=== PATIENT | female | born 1995 | race Asian ===

== ENCOUNTER 2019-09-11 13:19 | Inpatient (IN) | payer OTHER ==
[2019-09-11 13:59] LABS: Urine Appearance Clear; Urine Bilirubin Negative (Negative); Urine Blood Negative (Negative); Urine Color Straw; Urine Glucose Negative (Negative); Urine Ketones Negative (Negative); Urine Nitrite Negative (Negative); Urine Protein Negative (Negative); Urine Specific Gravity 1.011 (1.010-1.030); Urine Urobilinogen Negative (Negative)
[2019-09-11 14:20] LABS: ABS Lymphocytes 1.5 10^3/ul (1.0-4.8); ABS Monocytes 0.2 10^3/ul (0-0.8); ABS Neutrophils 1.7 10^3/ul (1.5-7.7); Eosinophil % 1.3 %; Hematocrit 38 % (35-47); Hemoglobin 12.5 g/dL (12.0-16.0); Lymphocyte % 43.5 %; Mean Corpuscular HGB Conc 33 g/dL (31-36); Mean Corpuscular Hemoglobin 31 pg (27-31); Mean Corpuscular Volume 94 fL (80-97); Nucleated Red Blood Cells % 0.1; Platelet Count 184 10^3/uL (150-450); Red Blood Count 4.09 10^6 /uL (3.70-4.87); Red Cell Distribution Width 13 % (10-15); White Blood Count 3.5 10^3/uL (3.5-10.8)
[2019-09-11 14:22] LABS: Urine Benzodiazepine Screen None Detected (None Detect); Urine Opiates Screen None Detected (None Detect)
[2019-09-11 14:36] LABS: Albumin 4.4 g/dL (3.2-5.2); Anion Gap 5 mmol/L (2-11); CO2 Carbon Dioxide 24 mmol/L (22-32); Calcium 9.7 mg/dL (8.6-10.3); Chloride 107 mmol/L (101-111); Potassium 3.8 mmol/L (3.5-5.0); Sodium 136 mmol/L (135-145)
[2019-09-11 14:42] LABS: ALT 15 U/L (7-52); AST 17 U/L (13-39); Acetaminophen < 15 mcg/mL; Albumin/Globulin Ratio 1.4 (1-3); Alcohol < 10 mg/dL (<10); Alkaline Phosphatase 68 U/L (34-104); BUN/Creatinine Ratio 24.5 (8-20); Blood Urea Nitrogen 12 mg/dL (6-24); EGFR African American 187.7 (>60); EGFR Non-African American 155.2 (>60); Globulin 3.1 g/dL (2-4); Glucose 82 mg/dL (70-100); Salicylate < 2.50 mg/dL (<30); Total Protein 7.5 g/dL (6.4-8.9)
--- NOTE | 2019-09-11 14:51 | ED ---
Psychiatric Complaint - HPI Summary HPI Summary: This patient is a 24-year-old female presenting to the ED with ongoing suicidal ideation since beginning of July. Patient denies any suicidal thoughts at this time, however was seen at [facility] for a refill on medication of her trazodone and Lexapro. She has been off of these medications 3 months. She states while at [facility] today she has been having feelings of suicide as well as stating she would take a handful of pills or run out into traffic. She arrives by 941. She states her worsening thoughts were back in July of suicide, however continues to have these, although mild. She denies any SI/HI at this time. Denies any self-harm. - History Of Current Complaint Chief Complaint: EDSuicidal Time Seen by Provider: 09/11/19 13:29 Hx Obtained From: Patient ?: No Onset/Duration: Sudden Onset Timing: Constant Severity Initially: Moderate Severity Currently: Moderate Character: Depressed Aggravating Factor(s): Nothing Alleviating Factor(s): Nothing Has Suicidal: Reports: Thoughts - Risk Factor(s) Completed Suicide Risk Factors: Negative - Allergies/Home Medications Allergies/Adverse Reactions: Allergies Allergy/AdvReac Type Severity Reaction Status Date / Time Penicillins Allergy Unknown Verified 09/11/19 13:31 Reaction Details Home Medications: Home Medications Bupropion XL* [Wellbutrin XL *] 150 mg PO DAILY 09/11/19 [History Confirmed ] Escitalopram * [Lexapro 10 mg (NF)] 10 mg PO DAILY 09/11/19 [History Confirmed 09/11/19] traZODone TAB* [Desyrel TAB*] 50 mg PO BEDTIME 09/11/19 [History Confirmed 09/11] PMH/Surg Hx/FS Hx/Imm Hx Previously Healthy: Yes - Immunization History Hx Pertussis Vaccination: No Immunizations Up to Date: Yes Infectious Disease History: No Infectious Disease History: Denies: Traveled Outside the [place] in Last 30 Days - Social History Occupation: Unemployed, Student Lives: Dormitory/Roommates Alcohol Use: None Hx Substance Use: No Substance Use Type: Reports: None Hx Tobacco Use: No Smoking Status (MU): Never Smoked Tobacco Review of Systems Negative: Fever, Chills, Fatigue, Skin Diaphoresis Negative: Palpitations, Chest Pain Negative: Shortness Of Breath, Cough Negative: Rash, Bruising Negative: Headache, Weakness Positive: Anxious, Depressed All Other Systems Reviewed And Are Negative: Yes Physical Exam Triage Information Reviewed: Yes Vital Signs On Initial Exam: Initial Vitals Temp Pulse Resp BP Pulse Ox 99 F 70 18 99/64 96 09/11/19 13:23 09/11/19 13:23 09/11/19 13:23 09/11/19 13:23 09/11/19 13:23 Vital Signs Reviewed: Yes Appearance: Positive: Well-Appearing, Well-Nourished Skin: Positive: Warm, Skin Color Reflects Adequate Perfusion Head/Face: Positive: Normal Head/Face Inspection Eyes: Positive: EOMI, KERLINE, Conjunctiva Clear Neck: Positive: Supple, No Lymphadenopathy Respiratory/Lung Sounds: Positive: Clear to Auscultation, Breath Sounds Present Cardiovascular: Positive: RRR, Pulses are Symmetrical in both Upper and Lower Extremities Musculoskeletal: Positive: Normal, Strength/ROM Intact Neurological: Positive: Speech Normal Psychiatric: Positive: Affect/Mood Appropriate - Noted Procedures - Sedation Patient Received Moderate/Deep Sedation with Procedure: No Diagnostics - Vital Signs Vital Signs Temp Pulse Resp BP Pulse Ox 09/11/19 13:23 99 F 70 18 99/64 96 - Laboratory Lab Results: Lab Results 09/11/19 09/11/19 09/11/19 Range/Units 13:45 13:45 14:07 WBC 3.5 (3.5-10.8) 10^3/uL RBC 4.09 (3.70-4.87) 10^6 /uL Hgb 12.5 (12.0-16.0) g/dL Hct 38 (35-47) % MCV 94 (80-97) fL MCH 31 (27-31) pg MCHC 33 (31-36) g/dL RDW 13 (10-15) % Plt Count 184 (150-450) 10^3/uL MPV 8.0 (7.4-10.4) fL Neut % (Auto) 48.7 % Lymph % (Auto) 43.5 % Yell % (Auto) 5.6 % Eos % (Auto) 1.3 % Baso % (Auto) 0.9 % Absolute Neuts (auto) 1.7 (1.5-7.7) 10^3/ul Absolute Lymphs (auto) 1.5 (1.0-4.8) 10^3/ul Absolute Monos (auto) 0.2 (0-0.8) 10^3/ul Absolute Eos (auto) 0.0 (0-0.6) 10^3/ul Absolute Basos (auto) 0.0 (0-0.2) 10^3/ul Absolute Nucleated RBC 0.0 10^3/ul Nucleated RBC % 0.1 Sodium (135-145) mmol/L Potassium (3.5-5.0) mmol/L Chloride (101-111) mmol/L Carbon Dioxide (22-32) mmol/L Anion Gap (2-11) mmol/L BUN (6-24) mg/dL Creatinine (0.51-0.95) mg/dL Est GFR ( Amer) (>60) Est GFR (Non-Af Amer) (>60) BUN/Creatinine Ratio (8-20) Glucose (70-100) mg/dL Calcium (8.6-10.3) mg/dL Total Bilirubin (0.2-1.0) mg/dL AST (13-39) U/L ALT (7-52) U/L Alkaline Phosphatase (34-104) U/L Total Protein (6.4-8.9) g/dL Albumin (3.2-5.2) g/dL Globulin (2-4) g/dL Albumin/Globulin Ratio (1-3) TSH Urine Color Straw Urine Appearance Clear Urine pH 6.0 (5-9) Ur Specific Waterman 1.011 (1.010-1.030) Urine Protein Negative (Negative) Urine Ketones Negative (Negative) Urine Blood Negative (Negative) Urine Nitrate Negative (Negative) Urine Bilirubin Negative (Negative) Urine Urobilinogen Negative (Negative) Ur Leukocyte Esterase Negative (Negative) Urine Glucose Negative (Negative) Salicylates (<30) mg/dL Urine Opiates Screen None detected (None Detect) Acetaminophen mcg/mL Ur Barbiturates Screen None detected (None Detect) Ur Phencyclidine Scrn None detected (None Detect) Ur Amphetamines Screen None detected (None Detect) U Benzodiazepines Scrn None detected (None Detect) Urine Cocaine Screen None detected (None Detect) U Cannabinoids Screen None detected (None Detect) Serum Alcohol (<10) mg/dL 09/11/19 Range/Units 14:07 WBC (3.5-10.8) 10^3/uL RBC (3.70-4.87) 10^6 /uL Hgb (12.0-16.0) g/dL Hct (35-47) % MCV (80-97) fL MCH (27-31) pg MCHC (31-36) g/dL RDW (10-15) % Plt Count (150-450) 10^3/uL MPV (7.4-10.4) fL Neut % (Auto) % Lymph % (Auto) % Yell % (Auto) % Eos % (Auto) % Baso % (Auto) % Absolute Neuts (auto) (1.5-7.7) 10^3/ul Absolute Lymphs (auto) (1.0-4.8) 10^3/ul Absolute Monos (auto) (0-0.8) 10^3/ul Absolute Eos (auto) (0-0.6) 10^3/ul Absolute Basos (auto) (0-0.2) 10^3/ul Absolute Nucleated RBC 10^3/ul Nucleated RBC % Sodium 136 (135-145) mmol/L Potassium 3.8 (3.5-5.0) mmol/L Chloride 107 (101-111) mmol/L Carbon Dioxide 24 (22-32) mmol/L Anion Gap 5 (2-11) mmol/L BUN 12 (6-24) mg/dL Creatinine 0.49 L (0.51-0.95) mg/dL Est GFR ( Amer) 187.7 (>60) Est GFR (Non-Af Amer) 155.2 (>60) BUN/Creatinine Ratio 24.5 H (8-20) Glucose 82 (70-100) mg/dL Calcium 9.7 (8.6-10.3) mg/dL Total Bilirubin 0.40 (0.2-1.0) mg/dL AST 17 (13-39) U/L ALT 15 (7-52) U/L Alkaline Phosphatase 68 (34-104) U/L Total Protein 7.5 (6.4-8.9) g/dL Albumin 4.4 (3.2-5.2) g/dL Globulin 3.1 (2-4) g/dL Albumin/Globulin Ratio 1.4 (1-3) TSH Pending Urine Color Urine Appearance Urine pH (5-9) Ur Specific Waterman (1.010-1.030) Urine Protein (Negative) Urine Ketones (Negative) Urine Blood (Negative) Urine Nitrate (Negative) Urine Bilirubin (Negative) Urine Urobilinogen (Negative) Ur Leukocyte Esterase (Negative) Urine Glucose (Negative) Salicylates < 2.50 (<30) mg/dL Urine Opiates Screen (None Detect) Acetaminophen < 15 mcg/mL Ur Barbiturates Screen (None Detect) Ur Phencyclidine Scrn (None Detect) Ur Amphetamines Screen (None Detect) U Benzodiazepines Scrn (None Detect) Urine Cocaine Screen (None Detect) U Cannabinoids Screen (None Detect) Serum Alcohol < 10 (<10) mg/dL Result Diagrams: 09/11/19 14:07 09/11/19 14:07 Lab Statement: Any lab studies that have been ordered have been reviewed, and results considered in the medical decision making process. Course/Dx - Course Course Of Treatment: Patient is evaluated for suicidal ideation since July. Patient states she denies is currently, however has intermittent thoughts of suicide. She denies any drug or alcohol use. Labs obtained and are unremarkable including an alcohol level. She is cleared for mental health evaluation. Following [facility], per Dr. Mayorga, pt will be admitted volunary for major depressive disorder. - Differential Dx/Clinical Impression Differential Diagnosis/HQI/PQRI: Positive: Suicide Attempt, Suicidal Ideation, Suicidal Gesture Provider Diagnosis: Suicidal ideation Discharge ED - Sign-Out/Discharge Documenting (check all that apply): Patient Departure All imaging exams completed and their final reports reviewed: No - Discharge Plan Condition: Fair Disposition: ADMITTED TO [facility] - Billing Disposition and Condition Condition: FAIR Disposition: Admitted to [facility]
[2019-09-11 16:34] LABS: TSH (Thyroid Stimulating Horm) 0.78 mcIU/mL (0.34-5.60)
[2019-09-11] MEDS ORDERED: Acetaminophen TAB* 325 MG PO PRN (21:46)
[2019-09-11] MEDS ORDERED: Al Hydrox/Mg Hydrox/Simet LIQ* 30 ML UDC PO PRN (21:47)
[2019-09-11] MEDS ORDERED: traZODone TAB* 50 MG TAB PO ONE (22:00)
[2019-09-12 07:06] LABS: HDL Cholesterol 73.4 mg/dL
--- NOTE | 2019-09-12 08:59 | HP ---
H&P (Free Text) History and Physical: Justification for admission: Immediate Safety. CC " I want to go home" The patient was brought to [facility] by [facility] after expressing that she had suicidal ideation with a plan to walk into traffic. Denied access to firearms or stockpiles of medications. She reported running out of medications a month ago and has felt anxious and depressed. The patient reported having low energy and decreased concentration. The patient reported that her friends that she lives with are too busy to live to visit her and that the hospital is not a good place for her. She identifies her stressors as feeling alone in [place]. Denied changes in sleep and diminished appetite with 20lbs weight loss. The patient denied homicidal ideation intent or plan.The patient denied auditory and/ or visual hallucinations. MDD Reported feeling depressed with increased crying spells. The last 2 weeks she has had feelings of hopelessness , and worthlessness. 20 lbs unintentional weight loss. Denied interruption of sleep Reported loss of energy , decreased concentration. Anxiety Denied having symptoms of anxiety such as having times where heart feels that it is beating out of chest , sweaty palms, or shallow breathing. Denied having uncomfortable or intrusive thoughts. Denied feeling restless, high strung, or worrying too much most of the time. Bipolar Denied symptoms of brandin such as having many ideas at once. Denied increased talkativeness where no one can interrupt. Denied feeling irritable most of the time while having an persistent abundance of energy most of the day without the use of energy drinks, stimulants, or recreational drug use. Denied an increase in intensity in goal directed activities. Denied having the decreased need to sleep for days , having prolonged elevated mood , or feeling on top of the world. Denied impulsive risky sexual encounters. Denied spending money recklessly , going on spending sprees wiping out savings. Denied impulsively traveling out of town or country, having super rooney, and unrealistic wealth or fame. Psychosis Does not endorse hearing things that other people do not hear or seeing things other people do not see. Denied feeling that TV is making references. Denied feeling that people are spying , following , or reading their thoughts. Phobias: Patient denied having excessive fear of a particular thing or situation. Eating disorders: Patient denied having excessive eating habits or feelings of guilt after eating. Denied repeated episodes of self induced vomiting after eating. PTSD Denied flashbacks, nightmares and avoidance of a prior traumatic event. PAST PSYCHIATRIC HISTORY: Prior Diagnosis : Major depressive disorder. History of past Psychiatric Hospitalizations: 1 prior psychiatric admission at [facility] in [place] in January 2019 for 3 days for walking into traffic. History of past suicide/homicide attempts : 1 past suicide attempt by walking into traffic, denied repeated self injurious behaviors. No history of violence. Outpatient follow-up: [facility] Medications: Past trials of medications include lexapro 10mg po daily , wellbutrin 150mg daily, trazodone 50mg qhs. She reported positive response with the current combinations of medications Guardianship: None. FAMILY HISTORY: - Suicide: Denied family history of suicide. - Mental illness: Denied a history of mental health in immediate family members. - Substance abuse: Denied substance abuse among family members. SUBSTANCE ABUSE HISTORY: Denied using alcohol, tobacco, heroin cocaine or other illicit substances. Denied abusing pills for recreational use. Denied past Substance abuse treatment. SOCIAL HISTORY: - Denied a history of childhood physical and or sexual abuse Born in [facility] and raised by her Grandparents until middle school and was then raised by her mother. Her parents are and she has not spoken with her father in 5 years. She was living in [place] for 4 years attending [employer]. 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 No history of special education. - Living situation: Currently lives with roommate in a apartment in [facility] [facility] [place] - Employment history: none - Relationship: Single and has no children. - Legal history: Denied - service history: Denied PAST MEDICAL HISTORY: Denied heart disease, diabetes, cancer and/ or other medical conditions. - Allergies: Penicillin Physical Exam: Please see ED note Mental Status Exam on Admission APPEARANCE : 24 year old female who appears stated age. Patient is not malodourous, and appears to have fair hygiene and grooming. BEHAVIOR: Cooperative , calm EYE CONTACT: Fair PSYCHOMOTOR ACTIVITY: No psychomotor agitation or retardation. MOVEMENTS: No abnormal movements observed. SPEECH : Normal rate, rhythm, volume and tone. MOOD : " Angry" AFFECT : Type is depressed Range is restricted Mood Congruent THOUGHT PROCESS: Formulated and organized in a logical, linear goal directed manner. No flight of ideas, neologism (made up words) , perseveration , tangential , loose associations , or circumstantiality. THOUGHT CONTENT: preoccupation about discharge PERCEPTION: No current auditory or visual hallucinations. Doesnt appear to be responding to internal cues. No evidence of depersonalization , de-realization, or illusions SUICIDALITY + suicidal ideation HOMICIDALITY Denied homicidal ideation, intent or plan. Insight/judgment: Poor insight and judgment ORIENTATION: Oriented to self, location, and time. Diagnosis on Admission: Major depressive disorder, severe. Assessment: 24 year old female with history of depression and recent suicidal ideation came to the hospital and was admitted to the [facility] at [facility]. Plan #Admit to BSU, Q15 minute observation. Start regular diet. Encourage participation in activities on the milieu. #Patient evaluated in ED and was determined by the emergency room Physician to be medically fit for admission to the BSU. # Justification for Admission: For immediate safety per outlined in the [place] Mental Hygiene Code. # The patient requires psychiatric inpatient admission at this time to assure safety, receive treatment and work toward stabilization. # Labs ordered: CBC, CMP, UDS, TSH, HBA1c, TSH, Toxicology screen, Urine analysis, and lipid profile. # B-HCG was ordered and results are negative. # Obtain collateral information once release is signed. # Collaboration with Social Work # Resume home medications wellbutrin 150mg po daily for fatigue and concentration , lexapro 10mg po daily for depression, trazodone 50mg po qhs for sleep. Denied seizure disorder or eating disorder. #Goals before discharge include: To eliminate/ reduce suicidal ideation Tentative Discharge: Pending psychiatric stabilization The risks, benefits, and alternative treatment options were discussed as well as the risks of refusing treatment. After this discussion and an acknowledgement of this understanding was made. A risk/ benefit assessment of treatment was considered and discussed with the patient. When comparing the risks of treatment with the dangers of not receiving treatment, the benefits of treatment outweigh the treatment risks at this time. Risks of allergy, suicidal ideation, behavioral changes, dystonia, rashes, electrolyte imbalances, movement disorders, cardiac conduction changes, serotonin syndrome, metabolic risks were among some of the risks discussed. Sodium 136 mmol/L (135-145) 09/11/19 14:07 Potassium 3.8 mmol/L (3.5-5.0) 09/11/19 14:07 BUN 12 mg/dL (6-24) 09/11/19 14:07 Creatinine 0.49 mg/dL (0.51-0.95) L 09/11/19 14:07 Hemoglobin A1c 5.4 % (4.0-5.6) 09/12/19 06:29 Calcium 9.7 mg/dL (8.6-10.3) 09/11/19 14:07 AST 17 U/L (13-39) 09/11/19 14:07 ALT 15 U/L (7-52) 09/11/19 14:07 Triglycerides 59 mg/dL 09/12/19 06:29 Cholesterol 214 mg/dL 09/12/19 06:29 LDL Cholesterol 129 mg/dL 09/12/19 06:29
[2019-09-12] MEDS: Multivitamins/Minerals TAB PO SCH (10:08)
[2019-09-12] MEDS: Escitalopram * 10 MG TAB PO SCH (10:12)
[2019-09-12 11:14] LABS: HCG Pregnancy 0.77 mIU/mL
[2019-09-12] MEDS: BuPROPion XL* 150 MG TAB.XL PO SCH (14:49)
[2019-09-12] MEDS: traZODone TAB* 50 MG TAB PO SCH (22:11)
[2019-09-13] MEDS: BuPROPion XL* 150 MG TAB.XL PO SCH (09:57)
[2019-09-13] MEDS: Escitalopram * 10 MG TAB PO SCH (09:57)
[2019-09-13] MEDS: Multivitamins/Minerals TAB PO SCH (09:57)
[2019-09-13] MEDS: traZODone TAB* 50 MG TAB PO SCH (22:56)
[2019-09-14] MEDS: BuPROPion XL* 150 MG TAB.XL PO SCH (09:48)
[2019-09-14] MEDS: Multivitamins/Minerals TAB PO SCH (09:48)
[2019-09-14] MEDS: Escitalopram * 10 MG TAB PO SCH (11:10)
--- NOTE | 2019-09-14 12:51 | PN ---
Subjective - Subjective Date of Service: 09/14/19 Service Type: 79337 Hosp care 25 min moderate complexity Subjective: John was busy doing couple of puzzles at the same time and appeared happy and smiling. Denied any problems with mood, thoughts or perceptions. Also denied SI or HI. Objective - General Observations Appearance: Well Groomed Stature: Thin Posture: WNL Eye Contact: Average Behavior/Activity: Accelerated - Interaction Observations Attitude Towards Examiner: Cooperative Stated Mood: Euthymic Affect: Bright Speech Pattern/Tone: Clear, Appropriate, Normal Volume Thought Content: WNL Hallucination Type: None Delusion Type: None - Cognitive Function Orientation: A&O x 4 Level of Consciousness: Awake, Alert, Appropriate Cognition: WNL Estimated Intelligence: Normal Insight: WNL Judgment Within Normal Limits: Yes - Medication Compliance Cooperative with Inpatient Medication Regimen: Yes - Group Participation Participates in Group Activities: Partial Assessment - Assessment Merits Inpatient Hospitalization: Consolidate Improvements, For Discharge Planning Plan - Plan Treatment Plan: Name: KANDIS LEES Birthdate: 1995 [id number] Continued Medication Management: Continue Outpt Medication Medications: Current Medications Acetaminophen (Tylenol Tab*) 650 mg PO Q4H PRN PRN Reason: PAIN; OR TEMP >101 Al Hydrox/Mg Hydrox/Simethicone (Maalox Plus*) 30 ml PO Q4H PRN PRN Reason: INDIGESTION Bupropion HCl (Wellbutrin Xl *) 150 mg PO DAILY [facility] Last Admin: 09/14/19 09:48 Dose: 150 mg Escitalopram Oxalate (Lexapro *) 10 mg PO DAILY [facility] Last Admin: 09/14/19 11:10 Dose: 10 mg Multivitamins/Minerals (Theragran/Minerals Tab*) 1 tab PO DAILY [facility] Last Admin: 09/14/19 09:48 Dose: 1 tab Trazodone HCl (Desyrel Tab*) 50 mg PO BEDTIME [facility] Last Admin: 09/13/19 22:56 Dose: Not Given - Discharge Plan Discharge Plan: Outpatient Follow Up Outpatient Program: Counseling[facility] Services at [place]
[2019-09-14] MEDS: traZODone TAB* 50 MG TAB PO SCH (22:28)
[2019-09-15 10:02] VITALS: BP 102/60
--- NOTE | 2019-09-15 10:20 | DS ---
Subjective - Subjective Service Types: 97[address] [facility] Day Mgmt complex over 30 min Discharge Date: 09/15/19 Subjective: CC: " Fine" Patient looks forward to going back to school and seeing her friends. The patient was seen and evaluated before discharge today. The patient reported having adequate appetite and sleep. The patient reported attending and participating in day groups. Per nursing no behavioral issues or overnight events reported. Patient reported tolerating medications without side effects. Justification for admission: Immediate Safety. CC " I want to go home" The patient was brought to [facility] by [facility] after expressing that she had suicidal ideation with a plan to walk into traffic. Denied access to firearms or stockpiles of medications. She reported running out of medications a month ago and has felt anxious and depressed. The patient reported having low energy and decreased concentration. The patient reported that her friends that she lives with are too busy to live to visit her and that the hospital is not a good place for her. She identifies her stressors as feeling alone in [place]. Denied changes in sleep and diminished appetite with 20lbs weight loss. The patient denied homicidal ideation intent or plan.The patient denied auditory and/ or visual hallucinations. MDD Reported feeling depressed with increased crying spells. The last 2 weeks she has had feelings of hopelessness , and worthlessness. 20 lbs unintentional weight loss. Denied interruption of sleep Reported loss of energy , decreased concentration. Anxiety Denied having symptoms of anxiety such as having times where heart feels that it is beating out of chest , sweaty palms, or shallow breathing. Denied having uncomfortable or intrusive thoughts. Denied feeling restless, high strung, or worrying too much most of the time. Bipolar Denied symptoms of brandin such as having many ideas at once. Denied increased talkativeness where no one can interrupt. Denied feeling irritable most of the time while having an persistent abundance of energy most of the day without the use of energy drinks, stimulants, or recreational drug use. Denied an increase in intensity in goal directed activities. Denied having the decreased need to sleep for days , having prolonged elevated mood , or feeling on top of the world. Denied impulsive risky sexual encounters. Denied spending money recklessly , going on spending sprees wiping out savings. Denied impulsively traveling out of town or country, having super rooney, and unrealistic wealth or fame. Psychosis Does not endorse hearing things that other people do not hear or seeing things other people do not see. Denied feeling that TV is making references. Denied feeling that people are spying , following , or reading their thoughts. Phobias: Patient denied having excessive fear of a particular thing or situation. Eating disorders: Patient denied having excessive eating habits or feelings of guilt after eating. Denied repeated episodes of self induced vomiting after eating. PTSD Denied flashbacks, nightmares and avoidance of a prior traumatic event. PAST PSYCHIATRIC HISTORY: Prior Diagnosis : Major depressive disorder. History of past Psychiatric Hospitalizations: 1 prior psychiatric admission at [facility] in [place] in January 2019 for 3 days for walking into traffic. History of past suicide/homicide attempts : 1 past suicide attempt by walking into traffic, denied repeated self injurious behaviors. No history of violence. Outpatient follow-up: [facility] Medications: Past trials of medications include lexapro 10mg po daily , wellbutrin 150mg daily, trazodone 50mg qhs. She reported positive response with the current combinations of medications Guardianship: None. FAMILY HISTORY: - Suicide: Denied family history of suicide. - Mental illness: Denied a history of mental health in immediate family members. - Substance abuse: Denied substance abuse among family members. SUBSTANCE ABUSE HISTORY: Denied using alcohol, tobacco, heroin cocaine or other illicit substances. Denied abusing pills for recreational use. Denied past Substance abuse treatment. SOCIAL HISTORY: - Denied a history of childhood physical and or sexual abuse Born in [place] and raised by her Grandparents until middle school and was then raised by her mother. Her parents are and she has not spoken with her father in 5 years. She was living in [place] for 4 years attending [employer]. 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 No history of special education. - Living situation: Currently lives with roommate in a apartment in [place] [facility] [place] - Employment history: none - Relationship: Single and has no children. - Legal history: Denied - service history: Denied PAST MEDICAL HISTORY: Denied heart disease, diabetes, cancer and/ or other medical conditions. - Allergies: Penicillin Physical Exam: Please see ED note Mental Status Exam on Admission APPEARANCE : 24 year old female who appears stated age. Patient is not malodourous, and appears to have fair hygiene and grooming. BEHAVIOR: Cooperative , calm EYE CONTACT: Fair PSYCHOMOTOR ACTIVITY: No psychomotor agitation or retardation. MOVEMENTS: No abnormal movements observed. SPEECH : Normal rate, rhythm, volume and tone. MOOD : " Angry" AFFECT : Type is depressed Range is restricted Mood Congruent THOUGHT PROCESS: Formulated and organized in a logical, linear goal directed manner. No flight of ideas, neologism (made up words) , perseveration , tangential , loose associations , or circumstantiality. THOUGHT CONTENT: preoccupation about discharge PERCEPTION: No current auditory or visual hallucinations. Doesnt appear to be responding to internal cues. No evidence of depersonalization , de-realization, or illusions SUICIDALITY + suicidal ideation HOMICIDALITY Denied homicidal ideation, intent or plan. Insight/judgment: Poor insight and judgment ORIENTATION: Oriented to self, location, and time. Diagnosis on Admission: Major depressive disorder, severe. Diagnosis on Discharge: Major depressive disorder, in partial remission. Condition at the time of discharge: At the time of discharge patient showed improvement of sleep and appetite. The patient was not a danger to self or others. The patient denied suicidal ideation, intent or plan. The patient denied homicidal targets, ideation, intent or plan. This patient participated in psychosocial rehabilitation and gained some insight into problems. The patient gained insight into mental illness, triggers, and treatment. The patient took medication as prescribed. The patient denied side effects of medication and objective signs of side effects were not evident. Therapy Resources were offered to the patient. Patient was given a supply of prescriptions at the time of discharge. The patient plans to attend follow up care with the follow up arrangements that were discussed and put in place. Patient was asked to keep appointments as scheduled, take medication as prescribed, have routine follow up care with their primary care physician and refrain from any use of alcohol or drugs. Objective - General Observations Appearance: Neat Appears Stated Age: Yes Stature: Thin Posture: WNL Eye Contact: Average Behavior/Activity: WNL - Interaction Observations Attitude Towards Examiner: Cooperative Stated Mood: Euthymic Affect: Full Speech Pattern/Tone: Clear Thought Process: Coherent Perception: WNL Thought Content: WNL Hallucination Type: None Delusion Type: None - Cognitive Function Orientation: A&O x 4 Level of Consciousness: Awake Cognition: WNL - Medication Compliance Cooperative with Inpatient Medication Regimen: Yes - Group Participation Participates in Group Activities: Yes Treatment Course & Assessment Clinical Course & Impression: Hospital course part A: Hospital course part B: Labs ordered included CBC, CMP, UDS, TSH, HBA1c, TSH, Toxicology screen, Urine analysis, and lipid profile. Labs were reviewed and did not require the need for further evaluation. Vital signs were monitored during the course of admission. MMPI was ordered and indicated features of The patient was admitted to the adult behavioral unit and placed on 15 minute check for safety. At a later time the patient was on Q30 minute observation and staff pass privileges. With those limits being extended, patient was safe on all checks and there were no occurrence of behavioral incidents. The patient did well on the unit and went to groups. Interacted with peers had adequate sleep and regular appetite. Tolerated medication changes without side effects. Group therapy and services were offered. The risks, benefits, and alternative treatment options were discussed as well as of the risks of refusing treatment. Treatment associated risks discussed. After this discussion made an acknowledgement of this understanding. Follow up care appointments were put in place. The importance of monitoring for metabolic changes was discussed and acknowledgement of this understanding was made. The patient was informed not to abruptly stop or start new medications before consulting with a medical professional. Improvements in patient from the time of admission include: Improved affect, sleep and decrease in anxiety. The patient expressed readiness for discharge home. The patient presents with a broader range of affect, and the absence of depressed mood, delusions, perceptual disturbance. The patient denied suicidal and or homicidal ideation intent or plan. Overall, the patient responded well to inpatient treatment as evidenced by their report of strengthening of coping mechanisms, reduced distress, and more positive outlook on circumstances. Of note there was an improvement of recognizing how emotional state can effect mood and behavior. The patient felt that being in the hospital caused her more anxiety because she was unable to utilize her coping skills such as her friends and her dog. Safety precautions were put in place which included involving the patient and their family to closely monitor for changes in mental state. In addition, implementing follow up care, screening for the need to remove/securing firearms , weapons and stockpile of medications. Patient/ family instructed to immediately call 911 should any safety concerns arise. B-HCG is negative for current . She was informed of the risks associated with medication in . In the event that she becomes in the future and was advised to talk with her outpatient healthcare provider about starting or stopping medications during . The patient was advised of the 24 hour / 7 days a week availability of the emergency room and to call 911 in the event of an emergency such as being suicidal and/ or homicidal. The patient was informed of the contact information for [facility], Suicide Prevention and Crisis Services, National Suicide Prevention Lifeline, [facility], Alcoholics Anonymous, and [facility]. Medications started included resuming wellbutrin 150mg po daily for fatigue and concentration , lexapro 10mg po daily for depression, trazodone 50mg po qhs for sleep.Patient did not have a history of seizure or eating disorder. Family lives in [place] and was unable to be involved in plan of care. At this time both the patient is eager for discharge and are in agreement with the discharge plan set forth by the treatment team and can safely receive care in the less restrictive outpatient setting. They were advised on how the days following discharge can be a vulnerable period and to look out for warning signs associated with decompensation and progression of mental illness. They were notified of the resources available in the event these situations arise. Patient was not assaultive or a behavioral problem during the course of admission. The patient showed good hygiene and was able to carry out activities of daily living. Patient will be discharged to live at her apartment. Follow up appointment at [facility] Patient informed of follow up appointment times. See more details for follow up care in the discharge plan. Risk factors were mitigated by establishing the patients baseline with close contacts at school. Implementing precautionary safety measures by confirming no stockpiles of medications and no access to firearms , providing mental health treatment, stabilizing depressive features, arrangement of outpatient continuation of care, as well as provided a supportive care environment and therapy resources during the course of hospitalization. Safety plan was reviewed and discussed with the patient. Risk factors: single, history of depression. Prior history of a suicide attempt. Limited social and family support network Protective factors: Currently no suicidal ideation, intent or plan. No history of service. Currently no feelings of hopelessness, not in an occupation of social isolation, doesnt have multiple medical conditions, no family history of suicide, doesnt have access to firearms. Doesnt have command hallucinations and or psychotic features at this time. No current substance abuse. No current alcohol abuse. Not an anniversary of a loss of a loved one. No changes in relationship status, housing, job, or school. Currently future orientated. Patient engaged in treatment and compliant with medication. Sodium 136 mmol/L (135-145) 09/11/19 14:07 Potassium 3.8 mmol/L (3.5-5.0) 09/11/19 14:07 BUN 12 mg/dL (6-24) 09/11/19 14:07 Creatinine 0.49 mg/dL (0.51-0.95) L 09/11/19 14:07 Hemoglobin A1c 5.4 % (4.0-5.6) 09/12/19 06:29 Calcium 9.7 mg/dL (8.6-10.3) 09/11/19 14:07 AST 17 U/L (13-39) 09/11/19 14:07 ALT 15 U/L (7-52) 09/11/19 14:07 Triglycerides 59 mg/dL 09/12/19 06:29 Cholesterol 214 mg/dL 09/12/19 06:29 LDL Cholesterol 129 mg/dL 09/12/19 06:29 Merits Inpatient Hospitalization: No Clear for Discharge: Adequate Clinical Respons Discharge Planning - Discharge Planning Discharge Plan: Outpatient Follow Up Outpatient Program: Counseling[facility] Services at [facility] Recommendations for Continuing Care: Medication Management Medications: Current Medications Acetaminophen (Tylenol Tab*) 650 mg PO Q4H PRN PRN Reason: PAIN; OR TEMP >101 Al Hydrox/Mg Hydrox/Simethicone (Maalox Plus*) 30 ml PO Q4H PRN PRN Reason: INDIGESTION Bupropion HCl (Wellbutrin Xl *) 150 mg PO DAILY [facility] Last Admin: 09/14/19 09:48 Dose: 150 mg Escitalopram Oxalate (Lexapro *) 10 mg PO DAILY [facility] Last Admin: 09/14/19 11:10 Dose: 10 mg Multivitamins/Minerals (Theragran/Minerals Tab*) 1 tab PO DAILY [facility] Last Admin: 09/14/19 09:48 Dose: 1 tab Trazodone HCl (Desyrel Tab*) 50 mg PO BEDTIME [facility] Last Admin: 09/14/19 22:28 Dose: Not Given Discharge Planning: Prescriptions provided for discharge [x] Yes [] No Follow up care details as per social work arrangements. Patient response to discharge plan: [x] eager for discharge [] agreeable with discharge plan [] ambivalent about discharge [] disagrees with discharge today
[2019-09-15] MEDS: BuPROPion XL* 150 MG TAB.XL PO SCH (11:07)
[2019-09-15] MEDS: Escitalopram * 10 MG TAB PO SCH (11:07)
[2019-09-15] MEDS: Multivitamins/Minerals TAB PO SCH (11:07)
== END 2019-09-15 11:30 | disposition home or self-care (01) | DRG 885 ==
LOC: ED 13:19 → BSU 19:44
PROVIDERS: ADMIT Psychiatry & Neurology Psychiatry; ATTEND Psychiatry & Neurology Psychiatry
DX: F33.2 Major depressive disorder, recurrent severe without psychotic features (principal); R45.851 Suicidal ideations; Z79.899 Other long term (current) drug therapy; Z88.0 Allergy status to penicillin
CPT/HCPCS: 36415; 80053; 80061; 80307; 80320; 80329; 81003; 83036; 84443; 84702; 85025; 99222; 99232; 99238; 99285; A9270-GY; G0480